=== PATIENT | female | born 1950 | race African-American/Black ===

== ENCOUNTER 2016-10-11 10:28 | Inpatient (IN) | payer OTHER ==
[~2016-10-11] VITALS: Ht 175.3 cm; Wt 66.8 kg
[2016-10-11 11:14] LABS: RED CELL DISTRIBUTION WIDTH 14.5 % (11.5-14.5)
[2016-10-11 11:26] LABS: CALCIUM 9.4 mg/dL (8.5-10.1); CREATININE SERUM 1.2 mg/dL (0.6-1.0); POTASSIUM SERUM 4.6 mmol/L (3.5-5.1)
[2016-10-11 11:35] LABS: ALBUMIN 3.7 g/dL (3.4-5.0); BILIRUBIN TOTAL 0.64 mg/dL (0.20-1.00); TOTAL PROTEIN, SERUM 8.1 g/dL (6.4-8.2)
[2016-10-11] MEDS ORDERED: HYDROCHLOROTHIA50 MG PO (11:50)
[2016-10-11] MEDS ORDERED: AMLODIPINE BESY10 M2 PO (11:50)
[2016-10-11 11:53] LABS: AMPHETAMINE QUAL UR NONE DETECTED (NEG <=1000)
[2016-10-11 12:08] LABS: microscopic required? YES; urine erythrocyte TRACE (NEGATIVE)
[2016-10-11 12:24] LABS: PLATELET COUNT 93 x10^3mcL (130-400); SEGMENTED NEUTROPHILS 75 % (37-75)
[2016-10-11 12:25] LABS: MONOCYTE 8 % (0-7); PLATELET MORPHOLOGY PLATELETS DECREASED; rbc morphology (normal/abnorm) NORMAL (NORMAL)
[2016-10-11 12:56] LABS: CHOLESTEROL/HDL RATIO 1.3
[2016-10-11 13:00] LABS: T3 TOTAL 0.93 ng/mL
[2016-10-11 13:03] LABS: MAGNESIUM 1.9 mg/dL (1.8-2.4); PHOSPHOROUS 3.3 mg/dL (2.5-4.9)
[2016-10-11 13:15] LABS: FREE T4 0.98 ng/dL (0.76-1.46); FREE THYROXINE INDEX 2.8 ug/dL (1.4-4.5); T4(THYROXINE) 7.6 ug/dL (4.7-13.3)
[2016-10-11 14:50] VITALS: BP 157/77
[2016-10-11 16:49] VITALS: BP 150/75
[2016-10-11 21:27] VITALS: BP 133/64
[2016-10-12 05:32] VITALS: BP 130/68
[2016-10-12 06:07] LABS: BASOPHIL % 0.1 % (0-2); RED CELL DISTRIBUTION WIDTH 14.1 % (11.5-14.5)
[2016-10-12 06:21] LABS: CALCIUM 8.6 mg/dL (8.5-10.1); CARBON DIOXIDE 28.7 mmol/L (21-32); CHLORIDE SERUM 104 mmol/L (98-107); CREATININE SERUM 0.9 mg/dL (0.6-1.0); GFR1 > 60 mL/min; GLUCOSE SERUM 98 mg/dL (74-106); SODIUM SERUM 140 mmol/L (136-145)
[2016-10-12 07:19] LABS: PLATELET COUNT 89 x10^3mcL (130-400)
[2016-10-12 09:13] VITALS: BP 124/44
[2016-10-12 13:24] VITALS: BP 132/66
[2016-10-12 13:50] VITALS: BP 132/66
[2016-10-12] MEDS ORDERED: GOOD SENSE OMEP20 MG PO (15:03)
== END 2016-10-12 15:45 | disposition home or self-care (01) | DRG 391 ==
LOC: ED 10:28 → DU 11:34
PROVIDERS: Emergency Medicine; ADMIT Family Medicine
DX: K21.9 Gastro-esophageal reflux disease without esophagitis (principal); N17.0 Acute kidney failure with tubular necrosis; I49.3 Ventricular premature depolarization; E86.0 Dehydration; D69.6 Thrombocytopenia, unspecified; I34.0 Nonrheumatic mitral (valve) insufficiency; I10 Essential (primary) hypertension; I07.1 Rheumatic tricuspid insufficiency; R82.71 Bacteriuria; R91.8 Other nonspecific abnormal finding of lung field; Z68.21 Body mass index [BMI] 21.0-21.9, adult
CPT/HCPCS: 36600; 80307; 83880; 84439; 90732; J7030; Q0092